=== PATIENT | female | born 1960 | race Asian ===

== ENCOUNTER → 2021-01-21 01:39 | Outpatient (CLI) | payer BC, SELFPAY ==
[2021-01-21 18:53] LABS: SARS-CoV-2 RNA PCR Negative
== END ==
PROVIDERS: PCP Internal Medicine; Visit Provider Internal Medicine Gastroenterology
DX: Z01.812 Encounter for preprocedural laboratory examination (principal); Z20.822 Contact with and (suspected) exposure to COVID-19
CPT/HCPCS: C9803; U0003; U0005

== ENCOUNTER 2021-01-24 01:25 | Day surgery (SDC) | payer BC, SELFPAY ==
[2021-01-09 13:14] VITALS: BMI 25.8
[2021-01-24 06:43] VITALS: BP 126/77; PULSE 64; RESP 17; TEMP 36.7; O2SAT 100; BMI 26.7
[2021-01-24] MEDS: LACTATED RINGERS 1,000 ML 150 ML IV CONT (06:59)
--- NOTE | 2021-01-24 07:25 | PM.HPGS ---
History of Present Illness History of Present Illness Consent: Risks, benefits, and alternatives have been discussed and questions answered. Patient agrees to proceed with procedure. Chief complaint: Neoplasm Screening Narrative: Aleisha Walton is a 60 year old female referred for colon cancer screening Review of Systems Review of Systems: All systems reviewed & are unremarkable except as noted in HPI and below PMFSH Past Medical History Medical History Hyperlipidemia Social History Social History Alcohol intake: current Drinks per week: 1 Substance use: never Substance use type: does not use Living arrangements: with family Meds Home Medications and Allergies Home Medications Medication Instructions Recorded Confirmed Type ergocalciferol (vitamin D2) 1,250 mcg PO WEEKLY 01/09/21 01/24/21 History Allergies Allergy/AdvReac Type Severity Reaction Status Date / Time No Known Allergies Allergy Verified 01/24/21 06:42 Vital Signs Vital Signs - 24 hr 01/24/21 06:43 Temperature 36.7 C Pulse Rate 64 Respiratory Rate 17 Blood Pressure 126/77 Pulse Oximetry 100 Exam Resp: Auscultation: clear to auscultation bilaterally Cardio: Rate: regular rate Rhythm: regular rhythm GI: GI Palp: Yes Soft to palpation and No Tenderness to palpation present (GI) Assessment and Plan Assessment and plan (1) Colon cancer screening: Code(s): Z12.11 - Encounter for screening for malignant neoplasm of colon Status: Acute Assessment and Plan: Colonoscopy with possible biopsy or polypectomy or cautery or injection of substances.
--- NOTE | 2021-01-24 07:32 | WPDANESEPPF ---
Anes - Initial Pre Proc Eval Procedure: Operation Date: 01/24/21 08:00 Proposed Procedures p Screening Colonoscopy - Kyle Garcia MD Date/Time: 01/24/21 07:32 Surgeon: Kyle Garcia MD Pre Op Diagnosis: Neoplasm Screening Patient Data Age: 60 Gender: F Height: 5 ft Weight: 62.1 kg Last Vital Signs Temp 98.1 F 01/24/21 06:43 Pulse 64 01/24/21 06:43 Resp 17 01/24/21 06:43 BP 126/77 01/24/21 06:43 Pulse Ox 100 01/24/21 06:43 Allergies Allergy/AdvReac Type Severity Reaction Status Date / Time No Known Allergies Allergy Verified 01/24/21 06:42 Home Medications Medication Instructions Recorded Confirmed Type ergocalciferol (vitamin D2) 1,250 mcg PO WEEKLY 01/09/21 01/24/21 History Patient hx anesthesia problems: none Family hx anesthesia problems: none [facility] Past Medical History Medical History Hyperlipidemia Social History Social History Alcohol intake: current Drinks per week: 1 Substance use: never Substance use type: does not use Living arrangements: with family Anes - Eval Final PreProcedure Day of Procedure 01/24/21 07:32 Patient weight: overweight Heart: regular rate and rhythm Lungs: clear to auscultation Airway: Mallampati scale class II Neurological: alert and oriented Last oral intake: >/= 8 hours ASA classification: II Emergent: no Anesthetic plan: proceed Anesthesia type and monitoring: general GIVS and standard monitoring Informed Consent: The patient's anesthetic plan and its attendant risks and benefits were discussed with the patient/family/POA. Questions were solicited and answers provided to the satisfaction of the patient/family/POA.
[2021-01-24 08:11] VITALS: BP 91/59; PULSE 76; RESP 16; O2SAT 99
[2021-01-24 08:21] VITALS: BP 100/66; PULSE 66; RESP 11; O2SAT 100
[2021-01-24 08:31] VITALS: BP 127/72; PULSE 63; RESP 13; O2SAT 100
== END 2021-01-24 08:50 | disposition home or self-care (01) ==
PROVIDERS: PCP Internal Medicine; Visit Provider Internal Medicine Gastroenterology
PROC: 0DJD8ZZ Inspection of Lower Intestinal Tract, Via Natural or Artificial Opening Endoscopic (ICD-10-PCS; CPT 45378; principal; 2021-01-24 08:00)
DX: Z12.11 Encounter for screening for malignant neoplasm of colon (principal); K57.30 Diverticulosis of large intestine without perforation or abscess without bleeding; K63.5 Polyp of colon; K62.1 Rectal polyp; K64.8 Other hemorrhoids
CPT/HCPCS: 45380; 45385; 88305; C9803; J2704; J7120; U0003; U0005

== ENCOUNTER 2024-03-10 13:45 | Outpatient (CLI) | payer BC, SELFPAY ==
--- NOTE | ~2024-03-10 | MM_ITS ---
EXAMINATION: MM screening jessica BI w [facility] HISTORY: Screening mammogram TECHNIQUE: Craniocaudal and mediolateral oblique 3-D tomosynthesis images were obtained and synthetic 2-D images were generated. CAD analysis was submitted and interpreted. COMPARISON: No prior mammogram is available for comparison at this institution. BREAST PARENCHYMAL COMPOSITION: There are scattered areas of fibroglandular density. FINDINGS: There is no evidence of suspicious mass, calcification, or architectural distortion to sugg est malignancy in either breast. IMPRESSION: 1. No mammographic evidence of malignancy. 2. Recommend routine screening mammography in one year. BI-RADS Category 1: Negative Reviewed, dictated and finalized at location A.
== END 2024-03-10 13:46 | disposition home or self-care (01) ==
PROVIDERS: PCP Internal Medicine; Visit Provider Obstetrics & Gynecology
DX: Z12.31 Encounter for screening mammogram for malignant neoplasm of breast (principal)
CPT/HCPCS: 77063; 77067

== ENCOUNTER 2024-10-20 08:47 | Emergency (ER) | payer BC, SELFPAY ==
[2024-10-20 09:00] VITALS: BP 139/86; PULSE 79; RESP 16; TEMP 36.6; O2SAT 100
--- NOTE | 2024-10-20 09:22 | ED_ITS ---
HPI - Allergic Reaction General Chief complaint: Allergic Reaction Stated complaint: FACIAL SWELLING Time Seen by Provider: 10/20/24 09:14 Source: patient, RN notes reviewed and old records reviewed Mode of arrival: ambulatory Limitations: no limitations History of Present Illness HPI narrative: 64-year-old female presents to [facility] with complaints facial swelling with small raised rash under bilateral eyes with itching. Patient reports she had a facial on Saturday and on Saturday noted the swelling to her face and rash. Patient denies any shortness of breath or any trouble swallowing. Patient reports she is taking oral Benadryl and also has used Benadryl ointment to the rash under her eyes complaint: allergic reaction and facial swelling Onset (ago): day(s) (4) Exposure: other (had recent facial) Known history of allergy to: none Symptoms: rash, itching and facial swelling Severity: moderate Treatment prior to arrival: benadryl Related Data Allergies Allergy/AdvReac Type Severity Reaction Status Date / Time No Known Allergies Allergy Verified 03/03/24 10:31 Review of Systems Review of Systems: CONSTITUTIONAL: Denies fever, chills, or sweats. CARDIOVASCULAR: Denies chest pain, palpitations, or edema. RESPIRATORY: Denies cough or dyspnea. SKIN: Reports red small raised rash on her cheeks and under her eyes bilaterally with itching and facial swelling MUSCULOSKELETAL: Denies joint pain or myalgia. NEUROLOGIC: Denies headache, numbness, or weakness. All systems reviewed & are unremarkable except as noted in HPI and below PMFSH Past Medical History Medical History Screening mammogram, encounter for Hyperlipidemia Surgical History Surgical History History of cataract surgery 12/2020 (L) eye 09/2021 (R) eye Family History Family History Mother Acute myocardial infarction Breast cancer Heart disease Social History Social History Smoking status: Never smoker Second hand tobacco smoke exposure: No Alcohol intake: current Drinks per week: 1 Alcohol use details: social Substance use: never Substance use type: does not use Do You Feel Safe in your Home?: Yes Lack of Transportation: No Lack of Food: Never True Current Housing: I Have Housing Concerned About Future Housing: No Difficulty Paying Gas/Electric Bills: No Difficulty Paying for Meds: No Currently Unemployed: No Education: Bachelor's Degree Difficulty w/ Childcare or Family Care: No Living arrangements: other Additional living arrangements comments: Occupation/Education: retired 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 There is no relevant family history pertinent to the presenting complaint Exam Narrative: GENERAL: Well-appearing, well-nourished, and in no acute distress. HEAD: Normocephalic, atraumatic. EYES: PERRLA, conjunctivae clear, and EOMI. ENT: Mucous membranes moist. Oropharynx without edema, erythema or lesions. NECK: Supple. No lymphadenopathy CHEST: Clear to auscultation. No respiratory distress. SaO2 100% on room air HEART: Regular rate and rhythm. SKIN: Warm, dry.? red raised rash under bilateral eyes some redness to her cheeks and swelling noted to face is puritic. NEURO:? Alert and oriented x3. PSYCH: Normal mood and affect Course Course Emergency Course: Patient is aware of diagnosis, understands and agrees to treatment plan.? Anticipatory guidance given.? Patient agrees to follow-up as directed and is aware of reasons to seek care at the emergency department. Portions of this record may have been created with voice recognition software Level of Care: Express Care Visit Vital Signs Vital signs: Vital Signs Temperature 36.6 C 10/20/24 09:00 Pulse Rate 79 10/20/24 09:00 Respiratory Rate 16 10/20/24 09:00 Blood Pressure 139/86 10/20/24 09:00 Pulse Oximetry 100 10/20/24 09:00 Temperature 36.6 C 10/20/24 09:00 Pulse Rate 79 10/20/24 09:00 Respiratory Rate 16 10/20/24 09:00 Blood Pressure 139/86 10/20/24 09:00 Pulse Oximetry 100 10/20/24 09:00 Reviewed MDM - Allergic Reaction Differential Diagnosis Differential diagnosis: Likely allergic reaction, contact dermatitis and other (adverse reaction to skin care products) Medical Records Attestation: I reviewed the patient's medical records. Critical Care Time Critical Care Time Critical Care Time: No Discharge Plan Discharge Clinical Impression: Allergic reaction to chemical substance Qualifiers: Encounter type: initial encounter Injury intent: accidental or unintentional Qualified Code(s): T65.91XA - Toxic effect of unspecified substance, accidental (unintentional), initial encounter Patient Disposition: Home, Self-Care Condition: Stable Instructions: Antibiotic Form, General Allergic Reaction (ED) Additional Instructions: apply Benadryl ointment or hydrocortisone to rash on face watch for any increasing symptom--redness, swelling, drainage Zyrtec daily for 10 days Pepcid 20 mg for 10 days follow up with PCP in 7-10 days for a wound check recheck if develop fever, chills, increasing symptom Go to the ER if your symptoms become worse of if ANY new symptoms develop prednisone taper take as prescribed with food If your symptoms persist, change or worsen significantly before you can contact your personal physician then please, without delay, go to the emergency depar tment for further evaluation. Follow-up with PCP in 7-10 days or sooner if needed Follow up with PCP soon in regards to your blood pressure which is elevated above threshold for referral. Blood pressure above 120/80 may indicate pre- hypertension. 139/86 Patient Language: Divehi Prescriptions: New famotidine [Pepcid] 20 mg tablet 20 mg PO DAILY Qty: 10 0RF prednisone 10 mg tablet 10 mg PO DIRECTED Qty: 42 0RF Rx Instructions: see taper instructions 6 tablets for 2 days, 5 tabs for 2 day, 4 tabs for 2 days,3 tabs for 2 days, 2 tabs for 2 days 1 tab for 2 days famotidine [Pepcid] 20 mg tablet 20 mg PO DAILY Qty: 10 0RF prednisone 10 mg tablet 10 mg PO DIRECTED Qty: 42 0RF Rx Instructions: see taper instructions 6 tabs daily x2 days, 5 tabs x2 days, 4 tabs x2 days, 3 tabs x2 days, 2 tabs x2 days, 1 tab x2 days Follow-up/Referrals: PHYSICIAN,NEUROPHYSIOLOGICAL TECHNICIAN [Primary Care Provider] - Time of Disposition: 09:38 Quality [place] Coma Scale Eyes: Open Verbal: Oriented and Alert Motor: Follows Commands Jessica Coma Total Score: 15
== END 2024-10-20 10:00 | disposition home or self-care (01) ==
PROVIDERS: Emergency Provider Registered Nurse
DX: T65.91XA Toxic effect of unspecified substance, accidental (unintentional), initial encounter (principal); E78.5 Hyperlipidemia, unspecified
CPT/HCPCS: 99213; G0463

== ENCOUNTER 2025-05-26 14:44 | Outpatient (CLI) | payer BC, SELFPAY ==
--- NOTE | ~2025-05-26 | MM_ITS ---
EXAMINATION: MM screening jessica BI w lashonda HISTORY: Screening TECHNIQUE: Craniocaudal and mediolateral oblique 3-D tomosynthesis images were obtained and synthetic 2-D images were generated. CAD analysis was submitted and interpreted. COMPARISON: 03/10/2024 BREAST PARENCHYMAL COMPOSITION: Not dense: There are scattered areas of fibroglandular density. FINDINGS: There is no evidence of suspicious mass, calcification, or architectural distortion to sugg est malignancy in either breast. There has been no suspicious interval change. IMPRESSION: 1. No mammographic evidence of malignancy. 2. Recommend routine screening mammography in one year. BI-RADS Category 1: Negative Reviewed, dictated and finalized at location B.
--- OUTSIDE RECORDS SUMMARY | 2025-05-26 14:47 | XMS_ITS | Data Portability ---
Author Organization [place] [facility], Main Office Address [address] [place] [address] Assessment No assessment recorded. Plan of Treatment Reminders Order Date Submit Date Provider Last Modified By Organization Details Last Modified Time Details Appointments None record ed. Lab None record ed. Referral None record ed. Procedures None record ed. Surgeries None record ed. Imaging None record ed. Medication Orders None record ed. Patient TargetsNo targets recorded. Patient InstructionsNo instructions recorded. Reason for Referral None Reported. Results Created Date Observation Date Name Description Value Unit Range Abnormal Flag Note LastModifiedBy Organization Detail LastModifiedTime 01/03/20 22 01/03/2022 TSH thyroid-stim ulating hormone 3.510 uIU/m L 0.465- 4.680 Not Available [facility] (Lab) [address] [place], [address], 01/03/2022 13:58:27 01/03/20 22 01/03/2022 VITAM IN D 25-HY DROXY [id number] 28.0 NG/mL 30-100 low Vitam in D Statu s: Defic ient: <20 ng/mL Insuf ficie nt: 20-29 ng/mL Suffi cient : 30-10 0 ng/mL Not Available [facility] (Lab) [address] [place], [address], 01/03/2022 13:44:12 01/03/20 22 01/03/2022 T4 FREE free T4 0.99 NG/dL 0.78-2 .19 Not Available [facility] (Lab) [address] [place], [address], 01/03/2022 13:43:30 01/03/20 22 01/03/2022 COMPR EHENS MARYANN METAB OLIC PANEL glucose 90 mg/dL 70-99 Not Available [facility] (Lab) [address] [facility] [place], [address], 01/03/2022 13:28:15 01/03/20 22 01/03/2022 COMPR EHENS MARYANN METAB OLIC PANEL sodium 140 mmol/ L 137-14 5 Not Available [facility] (Lab) [address] [place], [address], 01/03/2022 13:28:15 01/03/20 22 01/03/2022 COMPR EHENS MARYANN METAB OLIC PANEL potassium 4.6 mmol/ L 3.5-5. 1 Not Available [facility] (Lab) [address] [place], [address], 01/03/2022 13:28:15 01/03/20 22 01/03/2022 COMPR EHENS MARYANN METAB OLIC PANEL chloride 108 mmol/ L 98-107 high Not Available [facility] (Lab) [address] [place], [address], 01/03/2022 13:28:15 01/03/20 22 01/03/2022 COMPR EHENS MARYANN METAB OLIC PANEL carbon dioxide 28 mmol/ L 22-30 Not Available [facility] (Lab) [address] [place], [address], 01/03/2022 13:28:15 01/03/20 22 01/03/2022 COMPR EHENS MARYANN METAB OLIC PANEL agap 8.6 mmol/ L 14-22 low Not Available [facility] (Lab) [address] [place], [address], 01/03/2022 13:28:15 01/03/20 22 01/03/2022 COMPR EHENS MARYANN METAB OLIC PANEL BUN 13 mg/dL 8-19 Not Available [facility] (Lab) [address] [place], [address], 01/03/2022 13:28:15 01/03/20 22 01/03/2022 COMPR EHENS MARYANN METAB OLIC PANEL creatinine 0.69 mg/dL 0.66-1 .25 Not Available [facility] (Lab) [address] [place], [address], 01/03/2022 13:28:15 01/03/20 22 01/03/2022 COMPR EHENS MARYANN METAB OLIC PANEL GFR >60 Refer ence Range : [place] GFR Healt hy Adult : >60 mL/mi n/1.7 3 m2 Chron ic Kidne y Disea se: 15-60 mL/mi n/1.7 3 m2 Kidne y Failu re: <15/m L/min /1.73 m2 www.n iddk. nih.g ov The MDRD study equat ion has not been valid ated in child jaylen <18 years of age; pregn ant women ; the elder ly >85 years of age; or in some racia l or ethni c subgr oups, such as Hispa nics. Outsi de the valid ated damien eters , estim ated GFR is less accur ate, requi ring clini michelle judgm ent on a case- by-ca se basis . Clini michelle inter preta tion for other races and ages must be made by the clini sera. The MDRD study equat ion has not been valid ated for the evalu ation of serum creat inine relat ed to nutri elizabeth l statu s or medic ation usage . For perso ns <18 years of age, a pedia tric GFR calcu lator is avail able on the F websi te: https ://yris correa.o rg/pr ofess ional s/kdo qi/gf r_cal culat or Not Available [facility] (Lab) [address] [place], [address], 01/03/2022 13:28:15 01/03/20 22 01/03/2022 COMPR EHENS MARYANN METAB OLIC PANEL alkaline phosphatase 61 U/L 38-126 Not Available [facility] (Lab) [address] [place], [address], 01/03/2022 13:28:15 01/03/20 22 01/03/2022 COMPR EHENS MARYANN METAB OLIC PANEL alanine aminotransfe rase 31 U/L 0-35 Not Available [facility] (Lab) [address] [place], [address], 01/03/2022 13:28:15 01/03/20 22 01/03/2022 COMPR EHENS MARYANN METAB OLIC PANEL aspartate aminotransfe rase 40 U/L 15-37 high Not Available [facility] (Lab) [address] [place], [address], 01/03/2022 13:28:15 01/03/20 22 01/03/2022 COMPR EHENS MARYANN METAB OLIC PANEL bilirubin, total 0.60 mg/dL 0.20-1 .30 Not Available [facility] (Lab) [address] [place], [address], 01/03/2022 13:28:15 01/03/20 22 01/03/2022 COMPR EHENS MARYANN METAB OLIC PANEL calcium 8.8 mg/dL 8.4-10 .2 Not Available [facility] (Lab) [address] [place], [address], 01/03/2022 13:28:15 01/03/20 22 01/03/2022 COMPR EHENS MARYANN METAB OLIC PANEL total protein 7.2 g/dL 6.3-8. 2 Not Available [facility] (Lab) [address] [place], [address], 01/03/2022 13:28:15 01/03/20 22 01/03/2022 COMPR EHENS MARYANN METAB OLIC PANEL albumin 4.4 g/dL 3.4-5. 0 Not Available [facility] (Lab) [address] [place], [address], 01/03/2022 13:28:15 01/03/2001/03/2022 COMPR EHENS MARYANN METAB OLIC PANEL globulin 2.8 g/dL 2.6-4. 2 Not Available [facility] (Lab) [address] [place], [address], 01/03/2022 13:28:15 01/03/20 22 01/03/2022 COMPR EHENS MARYANN METAB OLIC PANEL A/G ratio 1.6 ratio 1.0-2. 0 Not Available [facility] (Lab) [address] [place], [address], 01/03/2022 13:28:15 01/03/2001/03/2022 LIPID PANEL LDL cholesterol, calculated 44 mg/dL 0-130 NIH SUNDAR NSUS REPOR T RECOM MENDA TIONS FOR LDL: ADULT CHILD LOW RISK <130 <110 (OPTI MAL LDL) <100 ----- BORDE RLINE : 130-1 59 ----- HIGH RISK: >160 >130 A TRIGL YCERI DE RESUL T >400 INVAL IDATE S THE CALCU LATIO N FOR LDL FRACT IONAT ION - THE LDL RESUL T WILL NOT BE REPOR KIMBERLY. Not Available [facility] (Lab) [address] [place], [address], 01/03/2022 13:28:08 01/03/20 22 01/03/2022 LIPID PANEL cholesterol 144 mg/dL 140-19 9 NIH SUNDAR NSUS RECOM MENDA TION FOR SAUNDRA STERO L: ADULT CHILD LOW RISK: <200 <170 BORDE RLINE : <200- 239 ----- HIGH RISK: >240 >200 Not Available [facility] (Lab) [address] [place], [address], 01/03/2022 13:28:08 01/03/20 22 01/03/2022 LIPID PANEL triglyceride s 82 mg/dL 0-150 NIH SUNDAR NSUS REPOR T RECOM MENDA TION FOR TRIGL YCERI KALEN: ADULT CHILD LOW RISK: <150 ----- BODER LINE: 150-1 99 ----- HIGH RISK: >200 ----- Not Available [facility] (Lab) [address] [place], [address], 01/03/2022 13:28:08 01/03/20 22 01/03/2022 LIPID PANEL HDL cholesterol 84 mg/dL 40- Not Available [facility] (Lab) [address] [place], [address], 01/03/2022 13:28:08 01/03/2001/03/2022 CBC/C OMPLE TE BLD COUNT W/DIF F mean red cell hemoglobin 28.4 pg 27.0-3 3.0 Not Available [facility] (Lab) [address] [place], [address], 01/03/2022 13:07:19 01/03/20 22 01/03/2022 CBC/C OMPLE TE BLD COUNT W/DIF F white blood cells 5.7 x10'3 /uL 4.2-10 .8 Not Available [facility] (Lab) [address] [place], [address], 01/03/2022 13:07:19 01/03/20 22 01/03/2022 CBC/C OMPLE TE BLD COUNT W/DIF F red blood cells 4.62 x10'6 /uL 3.80-5 .20 Not Available [facility] (Lab) [address] [place], [address], 01/03/2022 13:07:19 01/03/20 22 01/03/2022 CBC/C OMPLE TE BLD COUNT W/DIF F hemoglobin 13.1 g/dL 12.0-1 5.6 Not Available [facility] (Lab) [address] [place], [address], 01/03/2022 13:07:19 01/03/20 22 01/03/2022 CBC/C OMPLE TE BLD COUNT W/DIF F hematocrit 41.5 % 35.7-4 5.7 Not Available [facility] (Lab) [address] [place], [address], 01/03/2022 13:07:19 01/03/20 22 01/03/2022 CBC/C OMPLE TE BLD COUNT W/DIF F mean red cell volume 89.8 fL 82.0-9 9.0 Not Available [facility] (Lab) [address] [place], [address], 01/03/2022 13:07:19 01/03/20 22 01/03/2022 CBC/C OMPLE TE BLD COUNT W/DIF F mean RBC HGB concentratio n 31.6 g/dL 31.0-3 6.0 Not Available [facility] (Lab) [address] [place], [address], 01/03/2022 13:07:19 01/03/20 22 01/03/2022 CBC/C OMPLE TE BLD COUNT W/DIF F red cell distribution width 12.8 % 11.8-1 5.5 Not Available [facility] (Lab) [address] [place], [address], 01/03/2022 13:07:19 01/03/20 22 01/03/2022 CBC/C OMPLE TE BLD COUNT W/DIF F platelets 252 x10'3 /uL 150-40 0 Not Available [facility] (Lab) [address] [place], [address], 01/03/2022 13:07:19 01/03/20 22 01/03/2022 CBC/C OMPLE TE BLD COUNT W/DIF F mean platelet volume 10.1 fL 9.0-12 .4 Not Available [facility] (Lab) [address] [place], [address], 01/03/2022 13:07:19 01/03/20 22 01/03/2022 CBC/C OMPLE TE BLD COUNT W/DIF F neutrophils 47.8 % 39.0-7 2.0 Not Available [facility] (Lab) [address] [place], [address], 01/03/2022 13:07:19 01/03/20 22 01/03/2022 CBC/C OMPLE TE BLD COUNT W/DIF F lymphocytes 36.0 % 16.0-4 7.0 Not Available [facility] (Lab) [address] [place], [address], 01/03/2022 13:07:19 01/03/20 22 01/03/2022 CBC/C OMPLE TE BLD COUNT W/DIF F monocytes 7.2 % 5.0-12 .0 Not Available [facility] (Lab) [address] [place], [address], 01/03/2022 13:07:19 01/03/20 22 01/03/2022 CBC/C OMPLE TE BLD COUNT W/DIF F eosinophils 7.2 % 1.0-7. 0 high Not Available [facility] (Lab) [address] [place], [address], 01/03/2022 13:07:19 01/03/20 22 01/03/2022 CBC/C OMPLE TE BLD COUNT W/DIF F basophils 1.6 % 0.0-2. 0 Not Available [facility] (Lab) [address] [place], [address], 01/03/2022 13:07:19 01/03/2001/03/2022 CBC/C OMPLE TE BLD COUNT W/DIF F immature granulocytes 0.2 % 0.00-0 .50 Not Available [facility] (Lab) [address] [place], [address], 01/03/2022 13:07:19 01/03/20 22 01/03/2022 CBC/C OMPLE TE BLD COUNT W/DIF F neutrophils, absolute count 2.73 x10'3 /uL 1.5-8. 0 Not Available [facility] (Lab) [address] [place], [address], 01/03/2022 13:07:19 01/03/20 22 01/03/2022 CBC/C OMPLE TE BLD COUNT W/DIF F lymphocytes, absolute count 2.05 x10'3 /uL 1.07-3 .43 Not Available [facility] (Lab) [address] [place], [address], 01/03/2022 13:07:19 01/03/20 22 01/03/2022 CBC/C OMPLE TE BLD COUNT W/DIF F monocytes, absolute count 0.41 x10'3 /uL 0.29-0 .99 Not Available [facility] (Lab) [address] [place], [address], 01/03/2022 13:07:19 01/03/20 22 01/03/2022 CBC/C OMPLE TE BLD COUNT W/DIF F eosinophils, absolute count 0.41 x10'3 /uL 0.02-0 .53 Not Available [facility] (Lab) [address] [place], [address], 01/03/2022 13:07:19 01/03/20 22 01/03/2022 CBC/C OMPLE TE BLD COUNT W/DIF F basophils, absolute count 0.09 x10'3 /uL 0.01-0 .08 high Not Available [facility] (Lab) [address] [place], [address], 01/03/2022 13:07:19 01/03/20 22 01/03/2022 CBC/C OMPLE TE BLD COUNT W/DIF F immature granulocytes ,absolute 0.01 x10'3 /uL 0.00-0 .05 Not Available [facility] (Lab) [address] [place], [address], 01/03/2022 13:07:19 01/03/20 22 01/03/2022 CBC/C OMPLE TE BLD COUNT W/DIF F nucleated red blood cells 0.0 % -0 Not Available [facility] (Lab) [address] [place], [address], 01/03/2022 13:07:19 01/03/20 22 01/03/2022 CBC/C OMPLE TE BLD COUNT W/DIF F NRBC# 0.00 x10'3 /uL Not Available [facility] (Lab) [address] [place], [address], 01/03/2022 13:07:19 05/09/20 22 05/09/2022 HEPAT ITIS ACUTE PANEL S/C 0.05 0.00-0 .99 Not Available [facility] (Lab) [address] [place], [address], 05/09/2022 14:12:12 05/09/20 22 05/09/2022 HEPAT ITIS ACUTE PANEL hepatitis A IgM antibody non-re active non-re active For sampl es repor kimberly as Mark lazoine React maryann for HAV IgM, it is recom russell d a new speci men be obtai erica in 2 weeks and retes kimberly. Not Available [facility] (Lab) [address] [place], [address], 05/09/2022 14:12:12 05/09/20 22 05/09/2022 HEPAT ITIS ACUTE PANEL S/C 0.02 0.00-0 .79 Not Available [facility] (Lab) [address] [place], [address], 05/09/2022 14:12:12 05/09/20 22 05/09/2022 HEPAT ITIS ACUTE PANEL hepatitis B core IgM antibody non-re active non-re active Not Available [facility] (Lab) [address] [place], [address], 05/09/2022 14:12:12 05/09/20 22 05/09/2022 HEPAT ITIS ACUTE PANEL S/C 0.02 0.00-1 .10 Not Available [facility] (Lab) [address] [place], [address], 05/09/2022 14:12:12 05/09/20 22 05/09/2022 HEPAT ITIS ACUTE PANEL hepatitis B surface antigen non-re active non-re active Not Available [facility] (Lab) [address] [place], [address], 05/09/2022 14:12:12 05/09/20 22 05/09/2022 HEPAT ITIS ACUTE PANEL hepatitis C antibody non-re active non-re active Not Available [facility] (Lab) [address] [place], [address], 05/09/2022 14:12:12 05/09/20 22 05/09/2022 HEPAT ITIS ACUTE PANEL S/C 0.01 0.00-0 .99 Not Available [facility] (Lab) [address] [place], [address], 05/09/2022 14:12:12 05/09/20 22 05/09/2022 TSH thyroid-stim ulating hormone 4.390 uIU/m L 0.465- 4.680 Not Available [facility] (Lab) [address] [place], [address], 05/09/2022 13:42:17 05/09/20 22 05/09/2022 T4 FREE free T4 1.00 NG/dL 0.78-2 .19 Not Available [facility] (Lab) [address] [place], [address], 05/09/2022 13:21:42 05/09/20 22 05/09/2022 GGT/G -GLUT AMYL TRANS FERAS E gamma-glutam yl transferase 47 U/L 12-43 high Not Available [facility] (Lab) [address] [place], [address], 05/09/2022 13:21:16 05/09/20 22 05/09/2022 COMPR EHENS MARYANN METAB OLIC PANEL anion gap 12.4 mmol/ L 14-22 low Not Available [facility] (Lab) [address] [place], [address], 05/09/2022 13:21:14 05/09/20 22 05/09/2022 COMPR EHENS MARYANN METAB OLIC PANEL sodium 143 mmol/ L 137-14 5 Not Available [facility] (Lab) [address] [place], [address], 05/09/2022 13:21:14 05/09/20 22 05/09/2022 COMPR EHENS MARYANN METAB OLIC PANEL potassium 4.4 mmol/ L 3.5-5. 1 Not Available [facility] (Lab) [address] [place], [address], 05/09/2022 13:21:14 05/09/20 22 05/09/2022 COMPR EHENS MARYANN METAB OLIC PANEL chloride 107 mmol/ L 98-107 Not Available [facility] (Lab) [address] [place], [address], 05/09/2022 13:21:14 05/09/20 22 05/09/2022 COMPR EHENS MARYANN METAB OLIC PANEL carbon dioxide 28 mmol/ L 22-30 Not Available [facility] (Lab) [address] [place], [address], 05/09/2022 13:21:14 05/09/20 22 05/09/2022 COMPR EHENS MARYANN METAB OLIC PANEL glucose 91 mg/dL 70-99 Not Available [facility] (Lab) [address] [place], [address], 05/09/2022 13:21:14 05/09/20 22 05/09/2022 COMPR EHENS MARYANN METAB OLIC PANEL BUN 11 mg/dL 8-19 Not Available [facility] (Lab) [address] [place], [address], 05/09/2022 13:21:14 05/09/20 22 05/09/2022 COMPR EHENS MARYANN METAB OLIC PANEL creatinine 0.81 mg/dL 0.66-1 .25 Not Available [facility] (Lab) [address] [place], [address], 05/09/2022 13:21:14 05/09/20 22 05/09/2022 COMPR EHENS MARYANN METAB OLIC PANEL GFR >60 Refer ence Range : [place] GFR Healt hy Adult : >60 mL/mi n/1.7 3 m2 Chron ic Kidne y Disea se: 15-60 mL/mi n/1.7 3 m2 Kidne y Failu re: <15/m L/min /1.73 m2 www.n iddk. nih.g ov The MDRD study equat ion has not been valid ated in child jaylen <18 years of age; pregn ant women ; the elder ly >85 years of age; or in some racia l or ethni c subgr oups, such as Hispa nics. Outsi de the valid ated dmaien eters , estim ated GFR is less accur ate, requi ring clini michelle judgm ent on a case- by-ca se basis . Clini michelle inter preta tion for other races and ages must be made by the clini sera. The MDRD study equat ion has not been valid ated for the evalu ation of serum creat inine relat ed to nutri elizabeth l statu s or medic ation usage . For perso ns <18 years of age, a pedia tric GFR calcu lator is avail able on the NKF websi te: https ://ww w.kid madeline.pete chow/pr ofess ional s/kdo qi/gf r_cal culat or Not Available [facility] (Lab) [address] [place], [address], 05/09/2022 13:21:14 05/09/20 22 05/09/2022 COMPR EHENS MARYANN METAB OLIC PANEL alkaline phosphatase 64 U/L 38-126 Not Available [facility] (Lab) [address] [place], [address], 05/09/2022 13:21:14 05/09/20 22 05/09/2022 COMPR EHENS MARYANN METAB OLIC PANEL alanine aminotransfe rase 22 U/L 0-35 Not Available [facility] (Lab) [address] [place], [address], 05/09/2022 13:21:14 05/09/20 22 05/09/2022 COMPR EHENS MARYANN METAB OLIC PANEL aspartate aminotransfe rase 33 U/L 15-37 Not Available [facility] (Lab) [address] [place], [address], 05/09/2022 13:21:14 05/09/20 22 05/09/2022 COMPR EHENS MARYANN METAB OLIC PANEL bilirubin, total 0.40 mg/dL 0.20-1 .30 Not Available [facility] (Lab) [address] [place], [address], 05/09/2022 13:21:14 05/09/20 22 05/09/2022 COMPR EHENS MARYANN METAB OLIC PANEL calcium 9.3 mg/dL 8.4-10 .2 Not Available [facility] (Lab) [address] [place], [address], 05/09/2022 13:21:14 05/09/20 22 05/09/2022 COMPR EHENS MARYANN METAB OLIC PANEL total protein 7.1 g/dL 6.3-8. 2 Not Available [facility] (Lab) [address] [place], [address], 05/09/2022 13:21:14 05/09/20 22 05/09/2022 COMPR EHENS MARYANN METAB OLIC PANEL albumin 4.4 g/dL 3.4-5. 0 Not Available [facility] (Lab) [address] [place], [address], 05/09/2022 13:21:14 05/09/20 22 05/09/2022 COMPR EHENS MARYANN METAB OLIC PANEL globulin 2.7 g/dL 2.6-4. 2 Not Available [facility] (Lab) [address] [place], [address], 05/09/2022 13:21:14 05/09/20 22 05/09/2022 COMPR EHENS MARYANN METAB OLIC PANEL A/G ratio 1.6 ratio 1.0-2. 0 Not Available [facility] (Lab) [address] [place], [address], 05/09/2022 13:21:14 05/09/20 22 05/09/2022 LIPID PANEL HDL cholesterol 93 mg/dL 40- Not Available [facility] (Lab) [address] [place], [address], 05/09/2022 13:21:07 05/09/20 22 05/09/2022 LIPID PANEL cholesterol 142 mg/dL 140-19 9 NIH SUNDAR NSUS RECOM MENDA TION FOR SAUNDRA STERO L: ADULT CHILD LOW RISK: <200 <170 BORDE RLINE : <200- 239 ----- HIGH RISK: >240 >200 Not Available [facility] (Lab) [address] [place], [address], 05/09/2022 13:21:07 05/09/20 22 05/09/2022 LIPID PANEL triglyceride s 68 mg/dL 0-150 NIH SUNDAR NSUS REPOR T RECOM MENDA TION FOR TRIGL YCERI KALEN: ADULT CHILD LOW RISK: <150 ----- BODER LINE: 150-1 99 ----- HIGH RISK: >200 ----- Not Available [facility] (Lab) [address] [place], [address], 05/09/2022 13:21:07 05/09/20 22 05/09/2022 LIPID PANEL LDL cholesterol, calculated 35 mg/dL 0-130 NIH SUNDAR NSUS REPOR T RECOM MENDA TIONS FOR LDL: ADULT CHILD LOW RISK <130 <110 (OPTI MAL LDL) <100 ----- FREEDOMDE RLINE : 130-1 59 ----- HIGH RISK: >160 >130 A TRIGL YCERI DE RESUL T >400 INVAL IDATE S THE CALCU LATIO N FOR LDL FRACT IONAT ION - THE LDL RESUL T WILL NOT BE REPOR KIMBERLY. Not Available [facility] (Lab) [address] [place], [address], 05/09/2022 13:21:07 05/09/20 22 05/09/2022 VITAM IN D 25-HY DROXY [id number] 44.5 NG/mL 30-100 Vitam in D Statu s: Defic ient: <20 ng/mL Insuf ficie nt: 20-29 ng/mL Suffi cient : 30-10 0 ng/mL Not Available [facility] (Lab) [address] [place], [address], 05/09/2022 13:20:41 05/09/20 22 05/09/2022 CBC/C OMPLE TE BLD COUNT W/DIF F hematocrit 41.5 % 35.7-4 5.7 Not Available [facility] (Lab) [address] [place], [address], 05/09/2022 13:05:44 05/09/20 22 05/09/2022 CBC/C OMPLE TE BLD COUNT W/DIF F white blood cells 5.8 x10'3 /uL 4.2-10 .8 Not Available [facility] (Lab) [address] [place], [address], 05/09/2022 13:05:44 05/09/20 22 05/09/2022 CBC/C OMPLE TE BLD COUNT W/DIF F red blood cells 4.65 x10'6 /uL 3.80-5 .20 Not Available [facility] (Lab) [address] [place], [address], 05/09/2022 13:05:44 05/09/20 22 05/09/2022 CBC/C OMPLE TE BLD COUNT W/DIF F hemoglobin 13.1 g/dL 12.0-1 5.6 Not Available [facility] (Lab) [address] [place], [address], 05/09/2022 13:05:44 05/09/20 22 05/09/2022 CBC/C OMPLE TE BLD COUNT W/DIF F mean red cell volume 89.2 fL 82.0-9 9.0 Not Available [facility] (Lab) [address] [place], [address], 05/09/2022 13:05:44 05/09/20 22 05/09/2022 CBC/C OMPLE TE BLD COUNT W/DIF F mean red cell hemoglobin 28.2 pg 27.0-3 3.0 Not Available [facility] (Lab) [address] [place], [address], 05/09/2022 13:05:44 05/09/20 22 05/09/2022 CBC/C OMPLE TE BLD COUNT W/DIF F mean RBC HGB concentratio n 31.6 g/dL 31.0-3 6.0 Not Available [facility] (Lab) [address] [place], [address], 05/09/2022 13:05:44 05/09/20 22 05/09/2022 CBC/C OMPLE TE BLD COUNT W/DIF F red cell distribution width 12.6 % 11.8-1 5.5 Not Available [facility] (Lab) [address] [place], [address], 05/09/2022 13:05:44 05/09/20 22 05/09/2022 CBC/C OMPLE TE BLD COUNT W/DIF F platelets 261 x10'3 /uL 150-40 0 Not Available [facility] (Lab) [address] [place], [address], 05/09/2022 13:05:44 05/09/20 22 05/09/2022 CBC/C OMPLE TE BLD COUNT W/DIF F mean platelet volume 9.9 fL 9.0-12 .4 Not Available [facility] (Lab) [address] [place], [address], 05/09/2022 13:05:44 05/09/20 22 05/09/2022 CBC/C OMPLE TE BLD COUNT W/DIF F neutrophils 48.5 % 39.0-7 2.0 Not Available [facility] (Lab) [address] [place], [address], 05/09/2022 13:05:44 05/09/20 22 05/09/2022 CBC/C OMPLE TE BLD COUNT W/DIF F lymphocytes 35.2 % 16.0-4 7.0 Not Available [facility] (Lab) [address] [place], [address], 05/09/2022 13:05:44 05/09/20 22 05/09/2022 CBC/C OMPLE TE BLD COUNT W/DIF F monocytes 7.0 % 5.0-12 .0 Not Available [facility] (Lab) [address] [place], [address], 05/09/2022 13:05:44 05/09/20 22 05/09/2022 CBC/C OMPLE TE BLD COUNT W/DIF F eosinophils 7.9 % 1.0-7. 0 high Not Available [facility] (Lab) [address] [place], [address], 05/09/2022 13:05:44 05/09/20 22 05/09/2022 CBC/C OMPLE TE BLD COUNT W/DIF F basophils 1.2 % 0.0-2. 0 Not Available [facility] (Lab) [address] [place], [address], 05/09/2022 13:05:44 05/09/20 22 05/09/2022 CBC/C OMPLE TE BLD COUNT W/DIF F immature granulocytes 0.2 % 0.00-0 .50 Not Available [facility] (Lab) [address] [place], [address], 05/09/2022 13:05:44 05/09/20 22 05/09/2022 CBC/C OMPLE TE BLD COUNT W/DIF F eosinophils, absolute count 0.46 x10'3 /uL 0.02-0 .53 Not Available [facility] (Lab) [address] [place], [address], 05/09/2022 13:05:44 05/09/20 22 05/09/2022 CBC/C OMPLE TE BLD COUNT W/DIF F neutrophils, absolute count 2.83 x10'3 /uL 1.5-8. 0 Not Available [facility] (Lab) [address] [place], [address], 05/09/2022 13:05:44 05/09/20 22 05/09/2022 CBC/C OMPLE TE BLD COUNT W/DIF F lymphocytes, absolute count 2.05 x10'3 /uL 1.07-3 .43 Not Available [facility] (Lab) [address] [place], [address], 05/09/2022 13:05:44 05/09/20 22 05/09/2022 CBC/C OMPLE TE BLD COUNT W/DIF F monocytes, absolute count 0.41 x10'3 /uL 0.29-0 .99 Not Available [facility] (Lab) [address] [place], [address], 05/09/2022 13:05:44 05/09/20 22 05/09/2022 CBC/C OMPLE TE BLD COUNT W/DIF F basophils, absolute count 0.07 x10'3 /uL 0.01-0 .08 Not Available [facility] (Lab) [address] [place], [address], 05/09/2022 13:05:44 05/09/20 22 05/09/2022 CBC/C OMPLE TE BLD COUNT W/DIF F immature granulocytes ,absolute 0.01 x10'3 /uL 0.00-0 .05 Not Available [facility] (Lab) [address] [place], [address], 05/09/2022 13:05:44 05/09/20 22 05/09/2022 CBC/C OMPLE TE BLD COUNT W/DIF F nucleated red blood cells 0.0 % -0 Not Available [facility] (Lab) [address] [place], [address], 05/09/2022 13:05:44 05/09/20 22 05/09/2022 CBC/C OMPLE TE BLD COUNT W/DIF F NRBC# 0.00 x10'3 /uL Not Available [facility] (Lab) [address] [place], [address], 05/09/2022 13:05:44 06/14/20 23 06/14/2023 CBC/C OMPLE TE BLD COUNT W/DIF F white blood cells 6.4 x10'3 /uL 4.2-10 .8 Not Available [facility] (Lab) [address] [place], [address], 06/14/2023 12:33:58 06/14/20 23 06/14/2023 CBC/C OMPLE TE BLD COUNT W/DIF F red blood cells 4.92 x10'6 /uL 3.80-5 .20 Not Available [facility] (Lab) [address] [place], [address], 06/14/2023 12:33:58 06/14/20 23 06/14/2023 CBC/C OMPLE TE BLD COUNT W/DIF F hemoglobin 14.0 g/dL 12.0-1 5.6 Not Available [facility] (Lab) [address] [place], [address], 06/14/2023 12:33:58 06/14/20 23 06/14/2023 CBC/C OMPLE TE BLD COUNT W/DIF F hematocrit 43.1 % 35.7-4 5.7 Not Available [facility] (Lab) [address] [place], [address], 06/14/2023 12:33:58 06/14/20 23 06/14/2023 CBC/C OMPLE TE BLD COUNT W/DIF F mean red cell volume 87.6 fL 82.0-9 9.0 Not Available [facility] (Lab) [address] [place], [address], 06/14/2023 12:33:58 06/14/20 23 06/14/2023 CBC/C OMPLE TE BLD COUNT W/DIF F mean red cell hemoglobin 28.5 pg 27.0-3 3.0 Not Available [facility] (Lab) [address] [place], [address], 06/14/2023 12:33:58 06/14/20 23 06/14/2023 CBC/C OMPLE TE BLD COUNT W/DIF F mean RBC HGB concentratio n 32.5 g/dL 31.0-3 6.0 Not Available [facility] (Lab) [address] [place], [address], 06/14/2023 12:33:58 06/14/20 23 06/14/2023 CBC/C OMPLE TE BLD COUNT W/DIF F red cell distribution width 12.1 % 11.8-1 5.5 Not Available [facility] (Lab) [address] [place], [address], 06/14/2023 12:33:58 06/14/20 23 06/14/2023 CBC/C OMPLE TE BLD COUNT W/DIF F platelets 233 x10'3 /uL 150-40 0 Not Available [facility] (Lab) [address] [place], [address], 06/14/2023 12:33:58 06/14/20 23 06/14/2023 CBC/C OMPLE TE BLD COUNT W/DIF F mean platelet volume 10.3 fL 9.0-12 .4 Not Available [facility] (Lab) [address] [place], [address], 06/14/2023 12:33:58 06/14/20 23 06/14/2023 CBC/C OMPLE TE BLD COUNT W/DIF F neutrophils 52.3 % 39.0-7 2.0 Not Available [facility] (Lab) [address] [place], [address], 06/14/2023 12:33:58 06/14/20 23 06/14/2023 CBC/C OMPLE TE BLD COUNT W/DIF F lymphocytes 32.4 % 16.0-4 7.0 Not Available [facility] (Lab) [address] [place], [address], 06/14/2023 12:33:58 06/14/20 23 06/14/2023 CBC/C OMPLE TE BLD COUNT W/DIF F monocytes 7.1 % 5.0-12 .0 Not Available [facility] (Lab) [address] [place], [address], 06/14/2023 12:33:58 06/14/20 23 06/14/2023 CBC/C OMPLE TE BLD COUNT W/DIF F eosinophils 6.6 % 1.0-7. 0 Not Available [facility] (Lab) [address] [place], [address], 06/14/2023 12:33:58 06/14/20 23 06/14/2023 CBC/C OMPLE TE BLD COUNT W/DIF F basophils 1.4 % 0.0-2. 0 Not Available [facility] (Lab) [address] [place], [address], 06/14/2023 12:33:58 06/14/20 23 06/14/2023 CBC/C OMPLE TE BLD COUNT W/DIF F immature granulocytes 0.2 % 0.00-0 .50 Not Available [facility] (Lab) [address] [place], [address], 06/14/2023 12:33:58 06/14/20 23 06/14/2023 CBC/C OMPLE TE BLD COUNT W/DIF F neutrophils, absolute count 3.33 x10'3 /uL 1.5-8. 0 Not Available [facility] (Lab) [address] [place], [address], 06/14/2023 12:33:58 06/14/20 23 06/14/2023 CBC/C OMPLE TE BLD COUNT W/DIF F lymphocytes, absolute count 2.06 x10'3 /uL 1.07-3 .43 Not Available [facility] (Lab) [address] [place], [address], 06/14/2023 12:33:58 06/14/20 23 06/14/2023 CBC/C OMPLE TE BLD COUNT W/DIF F monocytes, absolute count 0.45 x10'3 /uL 0.29-0 .99 Not Available [facility] (Lab) [address] [place], [address], 06/14/2023 12:33:58 06/14/20 23 06/14/2023 CBC/C OMPLE TE BLD COUNT W/DIF F eosinophils, absolute count 0.42 x10'3 /uL 0.02-0 .53 Not Available [facility] (Lab) [address] [place], [address], 06/14/2023 12:33:58 06/14/20 23 06/14/2023 CBC/C OMPLE TE BLD COUNT W/DIF F basophils, absolute count 0.09 x10'3 /uL 0.01-0 .08 high Not Available [facility] (Lab) [address] [place], [address], 06/14/2023 12:33:58 06/14/20 23 06/14/2023 CBC/C OMPLE TE BLD COUNT W/DIF F immature granulocytes ,absolute 0.01 x10'3 /uL 0.00-0 .05 Not Available [facility] (Lab) [address] [place], [address], 06/14/2023 12:33:58 06/14/20 23 06/14/2023 CBC/C OMPLE TE BLD COUNT W/DIF F nucleated red blood cells 0.0 % -0 Not Available [facility] (Lab) [address] [place], [address], 06/14/2023 12:33:58 06/14/20 23 06/14/2023 CBC/C OMPLE TE BLD COUNT W/DIF F NRBC# 0.00 x10'3 /uL Not Available [facility] (Lab) [address] [place], [address], 06/14/2023 12:33:58 06/14/20 23 06/14/2023 LIPID PANEL cholesterol 145 mg/dL 140-19 9 NIH SUNDAR NSUS RECOM MENDA TION FOR SAUNDRA STERO L: ADULT CHILD LOW RISK: <200 <170 BORDE RLINE : <200- 239 ----- HIGH RISK: >240 >200 Not Available [facility] (Lab) [address] [place], [address], 06/14/2023 12:54:35 06/14/20 23 06/14/2023 LIPID PANEL triglyceride s 73 mg/dL 0-150 NIH SUNDAR NSUS REPOR T RECOM MENDA TION FOR TRIGL YCERI KALEN: ADULT CHILD LOW RISK: <150 ----- BODER LINE: 150-1 99 ----- HIGH RISK: >200 ----- Not Available [facility] (Lab) [address] [place], [address], 06/14/2023 12:54:35 06/14/20 23 06/14/2023 LIPID PANEL HDL cholesterol 69 mg/dL 40- Not Available [facility] (Lab) [address] [place], [address], 06/14/2023 12:54:35 06/14/20 23 06/14/2023 LIPID PANEL LDL cholesterol, calculated 61 mg/dL 0-130 NIH SUNDAR NSUS REPOR T RECOM MENDA TIONS FOR LDL: ADULT CHILD LOW RISK <130 <110 (OPTI MAL LDL) <100 ----- BORDE RLINE : 130-1 59 ----- HIGH RISK: >160 >130 A TRIGL YCERI DE RESUL T >400 INVAL IDATE S THE CALCU LATIO N FOR LDL FRACT IONAT ION - THE LDL RESUL T WILL NOT BE REPOR KIMBERLY. Not Available [facility] (Lab) [address] [place], [address], 06/14/2023 12:54:35 06/14/20 23 06/14/2023 COMPR EHENS MARYANN METAB OLIC PANEL sodium 140 mmol/ L 137-14 5 Not Available [facility] (Lab) [address] [place], [address], 06/14/2023 12:54:41 06/14/20 23 06/14/2023 COMPR EHENS MARYANN METAB OLIC PANEL potassium 4.2 mmol/ L 3.5-5. 1 Not Available [facility] (Lab) [address] [place], [address], 06/14/2023 12:54:41 06/14/20 23 06/14/2023 COMPR EHENS MARYANN METAB OLIC PANEL chloride 103 mmol/ L 98-107 Not Available [facility] (Lab) [address] [place], [address], 06/14/2023 12:54:41 06/14/20 23 06/14/2023 COMPR EHENS MARYANN METAB OLIC PANEL carbon dioxide 28 mmol/ L 22-30 Not Available [facility] (Lab) [address] [place], [address], 06/14/2023 12:54:41 06/14/20 23 06/14/2023 COMPR EHENS MARYANN METAB OLIC PANEL anion gap 13.2 mmol/ L 14-22 low Not Available [facility] (Lab) [address] [place], [address], 06/14/2023 12:54:41 06/14/20 23 06/14/2023 COMPR EHENS MARYANN METAB OLIC PANEL glucose 95 mg/dL 70-99 Not Available [facility] (Lab) [address] [place], [address], 06/14/2023 12:54:41 06/14/20 23 06/14/2023 COMPR EHENS MARYANN METAB OLIC PANEL BUN 15 mg/dL 8-19 Not Available [facility] (Lab) [address] [place], [address], 06/14/2023 12:54:41 06/14/20 23 06/14/2023 COMPR EHENS MARYANN METAB OLIC PANEL creatinine 0.76 mg/dL 0.66-1 .25 Not Available [facility] (Lab) [address] [place], [address], 06/14/2023 12:54:41 06/14/20 23 06/14/2023 COMPR EHENS MARYANN METAB OLIC PANEL GFR >60 Refer ence Range : [place] ge GFR Healt hy Adult : >60 mL/mi n/1.7 3 m2 Chron ic Kidne y Disea se: 15-60 mL/mi n/1.7 3 m2 Kidne y Failu re: <15/m L/min /1.73 m2 www.n iddk. nih.g ov The MDRD study equat ion has not been valid ated in child jaylen <18 years of age; pregn ant women ; the elder ly >85 years of age; or in some racia l or ethni c subgr oups, such as Hisde nics. Outsi de the valid ated damien eters , estim ated GFR is less accur ate, requi ring clini michelle judgm ent on a case- by-ca se basis . Clini michelle inter preta tion for other races and ages must be made by the clini sera. The MDRD study equat ion has not been valid ated for the evalu ation of serum creat inine relat ed to nutri elizabeth l statu s or medic ation usage . For perso ns <18 years of age, a pedia tric GFR calcu lator is avail able on the F websi te: https ://ww w.kid madeline.o rg/pr ofess ional s/kdo qi/gf r_cal culat or Not Available [facility] (Lab) [address] [place], [address], 06/14/2023 12:54:41 06/14/20 23 06/14/2023 COMPR EHENS MARYANN METAB OLIC PANEL alkaline phosphatase 71 U/L 38-126 Not Available [facility] (Lab) [address] [place], [address], 06/14/2023 12:54:41 06/14/20 23 06/14/2023 COMPR EHENS MARYANN METAB OLIC PANEL alanine aminotransfe rase 22 U/L 0-35 Not Available [facility] (Lab) [address] [place], [address], 06/14/2023 12:54:41 06/14/20 23 06/14/2023 COMPR EHENS MARYANN METAB OLIC PANEL aspartate aminotransfe rase 32 U/L 15-37 Not Available [facility] (Lab) [address] [place], [address], 06/14/2023 12:54:41 06/14/20 23 06/14/2023 COMPR EHENS MARYANN METAB OLIC PANEL bilirubin, total 0.60 mg/dL 0.20-1 .30 Not Available [facility] (Lab) [address] [place], [address], 06/14/2023 12:54:41 06/14/20 23 06/14/2023 COMPR EHENS MARYANN METAB OLIC PANEL calcium 9.2 mg/dL 8.4-10 .2 Not Available [facility] (Lab) [address] [place], [address], 06/14/2023 12:54:41 06/14/20 23 06/14/2023 COMPR EHENS MARYANN METAB OLIC PANEL total protein 7.7 g/dL 6.3-8. 2 Not Available [facility] (Lab) [address] [place], [address], 06/14/2023 12:54:41 06/14/20 23 06/14/2023 COMPR EHENS MARYANN METAB OLIC PANEL albumin 4.6 g/dL 3.4-5. 0 Not Available [facility] (Lab) [address] [place], [address], 06/14/2023 12:54:41 06/14/20 23 06/14/2023 COMPR EHENS MARYANN METAB OLIC PANEL globulin 3.1 g/dL 2.6-4. 2 Not Available [facility] (Lab) [address] [place], [address], 06/14/2023 12:54:41 06/14/20 23 06/14/2023 COMPR EHENS MARYANN METAB OLIC PANEL A/G ratio 1.5 ratio 1.0-2. 0 Not Available [facility] (Lab) [address] [place], [address], 06/14/2023 12:54:41 06/14/20 23 06/14/2023 T4 FREE free T4 1.00 NG/dL 0.78-2 .19 Not Available [facility] (Lab) [address] [place], [address], 06/14/2023 13:12:31 06/14/20 23 06/14/2023 TSH thyroid-stim ulating hormone 3.500 uIU/m L 0.465- 4.680 Not Available [facility] (Lab) [address] [place], [address], 06/14/2023 13:17:54 06/14/20 23 06/14/2023 VITAM IN D 25-HY DROXY [id number] 75.1 NG/mL 30-100 Vitam in D Statu s: Defic ient: <20 ng/mL Insuf ficie nt: 20-29 ng/mL Suffi cient : 30-10 0 ng/mL Not Available [facility] (Lab) [address] [place], [address], 06/15/2023 00:36:24 01/24/20 22 MAMMO , scree edith, digit al, bilat eral [facility] [address] [place] [address] [phone] Patien t Name: JOHAN BYRD Access ion #: [id number] Sex: F : 1959 7 4 Locati on: RA2 Attend ing Physic laurel: LEON HOLLAND GENNYOPAL Elias Orderi ng Physic laurel: LEON LINO GENNYEsmeELISE Elias Exam Date: 8:12 AM Exam Name: DIGITA L TRACEY BILAT SCREEN Admitt ing Diagno sis(es ): RADIOL OGY REPORT - FINAL EXAM: MG DIGITA L TRACEY BILAT SCREEN HISTOR Y: screen ing mammog orlin 61-yea r-old female with no curren t breast compla ints. The mine irby has a family histor y of breast cancer in her mother at age 7676 years old. COMPAR BRIANNA: Mammog val dated 2020. TECHNI QUE: Bilate ral CC and MLO views of the breast s were perfor med. Digita l Mammog val images were obtain ed. CAD (compu ter assist ed detect ion) was utiliz ed. FINDIN GS: The breast s are hetero geneou sly dense, which may obscur e small masses . Page 1 of 2 [facility] Mine irby Name: JOHAN BYRD Access ion #: [id number] Sex: F : 1959 7 4 Exam Date: 8:12 AM Exam Name: DIGITA L TRACEY BILAT SCREEN Admitt ing Diagno sis(es ): No masses , asymme tries, suspic ious calcif icatio ns, or jose luis ectura l distor tion are seen. IMPRES RED: BIRADS 1: Assess ment comple te. Negati ve. Recomm end annual screen ing mammog val. Accord ing to the [employer], yearly mammog alvino are recomm ended starti ng at age 40 and contin uing as long as the woman is in good health . Clinic al Breast Exam should be part of the period ic health exam-a bout every 3 years for women in their 20s and 30s and every year for women 40 and over. Breast self-e xam is an option for women in their 20s. Any breast change noted on the breast self-e xam she would be report ed prompt ly to the mine irby's health care [facility] er. A negati ve mammog val report should not discou rage follow -up or biopsy of a clinic ally signif icant findin g and/or abnorm ality. Dense breast tissue may obscur e small neopla sms. This mine irby has been entere d into a mammog val remind er system with a target date for her next mammog orlin. Create d and electr onical ly signed by: Kash العلي MD Signed Date: 3:18 PM (CT) Dictat ed by: Kash العلي MD DD: 3:18 PM (CT) DT: 3:18 PM (CT) Page 2 of 2 [id number] [facility] (Imaging) [address] [place], [address], 01/09/2023 00:48:43 01/24/20 22 US, abdom en, limit ed [facility] [address] [place] [address] Mine irby Name: JOHAN BYRD Access ion #: [id number] Sex: F : 1959 7 4 Locati on: RA2 Attend ing Physic laurel: JONNY ARMAS Orderi Physic laurel: JONNY ARMAS Exam Date: 8:12 AM Exam Name: US ABD/LT D/ORG/ UQ/GB Admitt ing Diagno sis(es ): RADIOL OGY REPORT - FINAL EXAM: US ABD/LT D/ORG/ UQ/GB HISTOR Y: elevat ed liver enzyme s 61-yea r-old female with elevat ed LFTs. COMPAR BRIANNA: None availa ble. TECHNI QUE: Right upper quadra nt ultras ound was perfor med. FINDIN GS: No gallst ones, gallbl adder wall thicke edith, or perich olecys tic free fluid. The patien t was not tender to transd ucer pressu re over the gallbl adder. No intrah epatic biliar y ductal dilata tion or liver mass. There is hepato petal portal venous color Dopple r flow. The common duct measur es 4.0 mm in diamet er. The partia lly visual ized pancre as is unrema rkable . The intrah epatic portio n of the IVC is patent . No upper abdomi nal aortic Page 1 of 2 [facility] Patien t Name: JOHAN BYRD Access ion #: [id number] Sex: F : 1959 7 4 Exam Date: 8:12 AM Exam Name: US ABD/LT D/ORG/ UQ/GB Admitt ing Diagno sis(es ): ectasi a. The right kidney measur es 9.1 cm in length and is normal in appear ance. IMPRES RED: Unrema rkable right upper quadra nt ultras ound. Create d and electr onical ly signed by: Kash العلي MD Signed Date: 12:48 PM (CT) Dictat ed by: Kash العلي MD DD: 12:48 PM (CT) DT: 12:48 PM (CT) Page 2 of 2 [id number] [facility] (Imaging) [address] [place], [address], 01/09/2023 00:48:43 01/24/20 22 01/23/2022 MAMMO , scree edith, digit al, bilat eral No observ ation record ed. [id number] [facility] [address] [place], [address], 01/09/2023 00:48:43 01/24/20 22 01/23/2022 US, liver No observ ation record ed. [id number] [facility] [address] [place], [address], 01/09/2023 00:48:43 10/16/20 22 10/16/2022 XR, foot, 3 or more view No observ ation record ed. [id number] [facility] [address] [place] [address], [phone], 01/09/2023 00:48:43 10/16/20 22 10/16/2022 XR, foot, 3 or more view No observ ation record ed. [id number] [facility] [address] [place] [address], [phone], 01/09/2023 00:48:43 03/07/20 23 03/07/2023 MAMMO , scree edith, digit al, bilat eral No observ ation record ed. [email or web address] [facility] [address] [place], [address], 03/08/2023 11:27:39 03/10/20 24 03/10/2024 imagi ng/di agnos tic resul t No observ ation record ed. [address], [place], [address], 03/10/2024 15:22:54 Result Notes Documentation Provider Name and Address Organization Details Recorded Time Mammo, Screening, Digital, Bilateral : [facility] [address] [place] [address] Patient Name: ALEISHA THORNE Sex: F : 1960 Location: [facility] Attending Physician: CHET SALAZAR Ordering Physician: CHET SALAZAR Exam Date: 01/23/2022 8:12 AM Exam Name: MG DIGITAL TRACEY BILAT SCREEN Admitting Diagnosis(es): RADIOLOGY REPORT - FINAL EXAM: MG DIGITAL TRACEY BILAT SCREEN HISTORY: screening mammogram 61-year-old female with no current breast complaints. The patient has a family history of breast cancer in her mother at age 7676 years old. COMPARISON: Mammography dated 01/09/2021. TECHNIQUE: Bilateral CC and MLO views of the breasts were performed. Digital Mammography images were obtained. CAD (computer assisted detection) was utilized. FINDINGS: The breasts are heterogeneously dense, which may obscure small masses. Page 1 of 2 [facility] Patient Name: ALEISHA THORNE Sex: F : 1960 Exam Date: 01/23/2022 8:12 AM Exam Name: DIGITAL TRACEY BILAT SCREEN Admitting Diagnosis(es): No masses, asymmetries, suspicious calcifications, or architectural distortion are seen. IMPRESSION: BIRADS 1: Assessment complete. Negative. Recommend annual screening mammography. According to the [employer], yearly mammograms are recommended starting at age 40 and continuing as long as the woman is in good health. Clinical Breast Exam should be part of the periodic health exam-about every 3 years for women in their 20s and 30s and every year for women 40 and over. Breast self-exam is an option for women in their 20s. Any breast change noted on the breast self-exam she would be reported promptly to the patient's health care provider. A negative mammography report should not discourage follow-up or biopsy of a clinically significant finding and/or abnormality. Dense breast tissue may obscure small neoplasms. This patient has been entered into a mammography reminder system with a target date for her next mammogram. Created and electronically signed by: Kash Orellana MD Signed Date: 01/23/2022 3:18 PM (CT) Dictated by: Kash Orellana MD (CT) (CT) Page 2 of 2 Not Available [facility] 01/09/2023 00:48:46 Problems Name Problem SNOMED Code Status Onset Date Resolution Date Notes Provider Name and Address Organization Details Recorded Time Pain in both feet 2529571738688 9102 Active 2021 Not Available [facility] 4 16:12:35 Bunion 231174961 Active 2021 Not Available [facility] 4 16:12:35 Bunion 981069725 Active 2021 Not Available [facility] 4 16:12:35 Hyperlipid emia 23143002 Active 2021 Not Available [facility] 4 16:12:35 Vitamin D deficiency 25801100 Active 2022 Not Available [facility] 4 16:12:35 Increased liver function 60351536 Active 2022 Not Available [facility] 4 16:12:35 Problem Notes None recorded. Procedures Surgical History Date Name Laterality Status Provider Name and Address Organization Details Recorded Time Date of Last Pap Smear completed Not Available [facility] 01/09/2023 00:41:39 1 Most Recent Mammogram completed Not Available [facility] 01/09/2023 00:41:39 1 Cataract Surgery completed Not Available [facility] 01/09/2023 00:41:43 Imaging Results None recorded. Procedure Notes None recorded. Medical Equipment None Reported. Medications Name Sig Start Date Stop Date Status Note LastModified by Organization Details LastModified Time ergocalcife rol (vitamin D2) 1,250 mcg (50,000 unit) capsule TAKE 1 CAPSULE BY MOUTH ONCE WEEKLY active Not Available Not Available No t Available rosuvastati n 20 mg tablet TAKE 1 TABLET BY MOUTH EVERY DAY IN THE EVENING active Not Available Not Available No t Available rosuvastati n 40 mg tablet TAKE 1 TABLET BY MOUTH EVERY DAY active Not Available Not Available No t Available Multivitami n 50 Plus TK 1 GUMMY DAILY 01/09 completed Not Available Not Available Not Available cholecalcif lui (vitamin D3) 1,250 mcg (50,000 unit) capsule TAKE 1 CAPSULE BY MOUTH ONE TIME PER WEEK active Not Available Not Available No t Available Suprep Bowel Prep Kit 17.5 gram-3.13 gram-1.6 gram oral solution USE DIRECTED, SEE INSTRUCTI ONS FROM OFFICE. 01/09 completed Not Available Not Available Not Available Vitals Date Recorded Body mass index (BMI) Body height Heart rate Body temperature Body weight Systolic And Diastolic Provider Name and Address Organization Details Last Updated DateTime 3 27 kg/m2 152.4 cm 60 /min 97.4 [degF] 09254.7 5 g 120/78 mm[Hg] Not Available [facility] 3 00:43:59 Date Recorded Body mass index (BMI) Body height Oxygen saturation Oxygen saturation in Arterial blood by Pulse oximetry Heart rate Body temperature Body weight Systolic And Diastolic Provider Name and Address Organization Details Last Updated DateTime 2 26.6 kg/m2 152.4 cm 98 % 98 % 75 /min 97.3 [degF] 37030.5 6 g 122/72 mm[Hg] Not Available [facility] 3 00:43:59 Date Recorded Body mass index (BMI) Body height Heart rate Body temperature Body weight Systolic And Diastolic Provider Name and Address Organization Details Last Updated DateTime 2 26.6 kg/m2 152.4 cm 72 /min 98 [degF] 03339.5 6 g 100/66 mm[Hg] Not Available [facility] 3 00:43:59 Date Recorded Body mass index (BMI) Body height Oxygen saturation Oxygen saturation in Arterial blood by Pulse oximetry Heart rate Respiratory rate Body weight Systolic And Diastolic Provider Name and Address Organization Details Last Updated DateTime 2 26.6 kg/m2 152.4 cm 98 % 98 % 80 /min 14 /min 54008.5 6 g 118/74 mm[Hg] Not Available [facility] 3 00:43:59 Date Recorded Body mass index (BMI) Body height Heart rate Body temperature Body weight Systolic And Diastolic Provider Name and Address Organization Details Last Updated DateTime 2 26.6 kg/m2 152.4 cm 79 /min 97.6 [degF] 66031.5 6 g 120/80 mm[Hg] Not Available [facility] 3 00:43:59 Social History Question Answer Notes LastModified by Organizat ion Details LastModified Time Tobacco Smoking Status Never Smoker Not Available [facility] 01/09/2023 00:41:15 Do You Have An Advance Directive? No MIGRATION.[id number] [id number] Information not available 01/09/2023 Do You Wear A Helmet When Biking? Yes MIGRATION.94396 74258 Information not available 01/09/2023 What Is Your Level Of Caffeine Consumption? Moderate MIGRATION.10658 51498 Information not available 01/09/2023 In The 14 Days Before Symptom Onset, Have You Had Close Contact With A Laboratory-confir med COVID-19 While That Case Was Ill? No MIGRATION.04939 20368 Information not available 01/09/2023 In The 14 Days Before Symptom Onset, Have You Had Close Contact With A Person Who Is Under Investigation For COVID-19 While That Person Was Ill? No MIGRATION.85798 67664 Information not available 01/09/2023 What Type Of Diet Are You Following? REGULAR MIGRATION.25021 25486 Information not available 01/09/2023 Which Illicit Or Recreational Drugs Have You Used? None MIGRATION.83072 19868 Information not available 01/09/2023 What Is The Highest Grade Or Level Of School You Have Completed Or The Highest Degree You Have Received? [id number] MIGRATION.36772 86217 Information not available 01/09/2023 Have There Been Any Changes To Your Family Or Social Situation? No MIGRATION.12263 36190 Information not available 01/09/2023 What Is The Fluoride Status Of Your Home? Unknown MIGRATION.89031 12884 Information not available 01/09/2023 Are There Any Guns Present In Your Home? No MIGRATION.78534 85588 Information not available 01/09/2023 Do You Use Insect Repellent Routinely? Yes MIGRATION.68050 76253 Information not available 01/09/2023 Where Do You Live? [place] MIGRATION.52330 08918 Information not available 01/09/2023 Do You Have A Medical Power Of [employer]? No MIGRATION.61399 38395 Information not available 01/09/2023 What Was The Date Of Your Most Recent Tobacco Screening? 12/19/2022 MIGRATION.67956 19424 Information not available 01/09/2023 Have You Ever Been Counseled For Unhealthy Alcohol Use? No MIGRATION.89421 70529 Information not available 01/09/2023 Do You Have Any Pets? No MIGRATION.59294 60180 Information not available 01/09/2023 What Is Your Relationship Status? MIGRATION.54608 73399 Information not available 01/09/2023 Do You Use Your Seat Belt Or Car Seat Routinely? Yes MIGRATION.82906 72362 Information not available 01/09/2023 Do You Have Smoke And Carbon Monoxide Detectors In Your Home? Yes MIGRATION.51881 03724 Information not available 01/09/2023 Are You Passively Exposed To Smoke? No MIGRATION.42128 11945 Information not available 01/09/2023 Are There Any Smokers In Your House? No MIGRATION.65377 63950 Information not available 01/09/2023 What Types Of Sporting Activities Do You Participate In? None MIGRATION.11346 41106 Information not available 01/09/2023 Do You Use Sunscreen Routinely? Yes MIGRATION.16635 04473 Information not available 01/09/2023 Has Tobacco Cessation Counseling Been Provided? No N/a MIGRATION.45314 29891 Information not available 01/09/2023 Have You Recently Traveled Abroad? No MIGRATION.75027 77286 Information not available 01/09/2023 Do You Have Any Dietary Restrictions? No MIGRATION.04458 41256 Information not available 01/09/2023 Sex: Female Functional Status Question Answer Note LastModified by Ule Details LastModified Time Do you use any illicit or recreational drugs? No MIGRATION.874396 5422 Information not available 01/09/2023 Do you or have you ever used any other forms of tobacco or nicotine? No MIGRATION.702553 8505 Information not available 01/09/2023 What is your level of alcohol consumption? 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 Never used electronic cigarettes MIGRATION.907399 9487 Information not available 01/09/2023 What is your exercise level? Moderate MIGRATION.045209 3891 Information not available 01/09/2023 Mental Status Question Answer Note LastModified by Ule Details LastModified Time Do you feel stressed (tense, restless, nervous, or anxious, or unable to sleep at night)? [id number] MIGRATION.[id number] 6 Information not available 01/09/2023 Family History Relationship Description Onset Age of this Age Resolved Age Notes LastModified by Organization Details LastModified Time Mother Myocardial infarction [id number] Not available 01/09/2023 00:41:48 Mother Malignant tumor of breast MIGRATION.[id number] Not available 01/09/2023 00:41:48 Mother Heart disease MIGRATION.[id number] Not available 01/09/2023 00:41:48 Medical History Condition Response NERVE DISEASE N BLINDNESS N RHEUMATIC FEVER N KIDNEY STONES N BLADDER PROBLEMS N MRSA N OTHER # 1 N POLIO N LUNG DISEASE/DISORDER N HISTORY OF DRUG ABUSE N RADIATION / CHEMOTHERAPY N COPD N Other # 2 N BLOOD DISEASES N EAR OR HEARING PROBLEMS N MUMPS N SHINGLES N BOWEL PROBLEMS N DEPRESSION (INCLUDING POST ) N STROKE/TIA N ULCERS N BENIGN PROSTATIC HYPERPLASIA N MEASLES N HYPOTENSION N MYOCARDIAL INFARCTION N OBESITY N GERD/NAUSEA N ANEURYSM N URINARY/BLADDER/KIDNEY PROBLEMS N CORONARY ARTERY DISEASE (CAD) N ADDICTION CONCERNS N ENDOMETRIOSIS N Impotence N USE OF BLOOD THINNERS N SKIN PROBLEMS N GASTROINTESTINAL DISORDER N PERIPHERAL VASCULAR DISEASE N MUSCLE,JOINT OR BONE PROBLEMS N GASTROINTESTINAL BLEEDING N BLOOD CLOTS N ASTHMA N CATARACTS N ERECTILE DYSFUNCTION N VARICOSITIES N GI PROBLEMS N Low Testosterone N INFERTILITY N AIDS/HIV N CHEMOTHERAPY / RADIATION N LIVER DISEASE N MALE HYPOGONADISM N HYPERTENSION N Deficiency N TOURETTE'S N ANXIETY DISORDER N BLOOD TRANSFUSION N ANEMIA/BLOOD DISORDER N CHRONIC EAR INFECTIONS N BRONCHITIS N TUBERCULOSIS N GLAUCOMA N FOOT PROBLEM N DIVERTICULITIS N CHICKENPOX N SLEEP APNEA N INFECTIOUS DISEASE N HEART ARRHYTHMIA N PROSTATE N INSOMNIA N HIGH CHOLESTEROL / HYPERLIPIDEMIA Y HYPERTHYROIDISM N EYE PROBLEMS N EDEMA N CHRONIC PAIN SYNDROME N HYPOTHYROIDISM N CAROTID BLOCKAGE N CONSTIPATION N BACK / NECK PROBLEMS N ATHEROSCLEROSIS N BREAST PROBLEMS N DIALYSIS N ECZEMA N OSTEOPOROSIS N ARTHRITIS N APPENDICITIS N DIABETES, TYPE N BAD TEETH N ENT N HEARTBURN / REFLUX N AUTISM SPECTRUM DISORDER (ASD) N HEPATITIS / LIVER DISEASE N GOUT N SLEEP DISORDER N ALZHEIMER'S DISEASE N Brain Problems N HERPES N DEMENTIA N HEADACHES/MIGRAINES N SEIZURES/EPILEPSY N VASCULAR DISEASE N PACEMAKER N Blood Disorder N DIZZINESS N HEART DISEASE/HEART PROBLEMS N KIDNEY DISEASE N MULTIPLE SCLEROSIS N CARDIAC ARRHYTHMIA N CANCER: SPECIFY N ATRIAL FIBRILLATION N Gall Stones N PULMONARY EMBOLISM N AUTOIMMUNE DISEASE N Gynecological History Statement/Question Response Abnormal Pap N If Post Menopausal, Age at Menopause 53 Date of Last Pap Smear 01/09/2021 Current Control Method Menopause Age at Menarche 14 Most Recent Mammogram 01/09/2021 Breast Problems none Obstetrics History GPAL:G 2 P 2 0 0 2 Type Value Full Term 2 Living 2 Total 2 Immunizations Vaccine Type Date Status Note Provider Nam e and Address Organization Details Recorded Time COVID-19, mRNA, LNP-S, PF, 100 mcg/0.5mL dose or 50 mcg/0.25mL dose 03/03/2021 completed Not Available [facility] 4 16:12:35 COVID-19, mRNA, LNP-S, PF, 100 mcg/0.5mL dose or 50 mcg/0.25mL dose 02/09/2021 completed Not Available [facility] 4 16:12:35 Influenza, split virus, quadrivalent, PF 10/10/2022 completed Not Available [facility] 4 16:12:35 COVID-19, mRNA, LNP-S, PF, 100 mcg/0.5mL dose or 50 mcg/0.25mL dose 10/24/2021 completed Not Available [facility] 4 16:12:35 Tdap 11/11/2009 completed Not Available [facility] 12/05/2023 16:12:35 Influenza, split virus, quadrivalent, PF 09/04/2021 completed Not Available [facility] 4 16:12:35 Past Encounters Encounter ID Performer Location Encounter Start Date Encounter Closed Date Diagnosis/Indication Diagnosis SNOMED-CT Code Diagnosis ICD10 Code Diagnosis Note [id number] [facility] _GARRETT_ IGRATION_ DEFAULT_1 _1 , 01/09/2021 00:00:00 01/09/2021 15:29:01 [id number] Chet elias MD [facility] [place] [address] [place] [address] [place] [address] 05/08/2021 00:00:00 05/08/2021 18:27:25 [id number] MD CESAR SandovalYovanny [facility] [place] [address] [place] [address] [place] [address] 09/04/2021 00:00:00 09/04/2021 16:37:23 [id number] Chet elias MD [facility] [place] [address] [place] [address] [place] [address] 01/15/2022 00:00:00 01/15/2022 14:36:28 [id number] Chet elias MD [facility] Internal [facility] [place] christ[place] [address] [place] [address] [place] [address] 05/16/2022 00:00:00 05/16/2022 14:39:37 [id number] Ramana Galaviz DPM _JIMENEZ_Yudy IGRATION_ DEFAULT_1 _1 , 09/10/2022 00:00:00 10/02/2022 14:15:36 [id number] DELANEY FrederickATHVADIM_Yudy IGRATION_ DEFAULT_1 _1 , 2022 00:00:00 10/16/2022 09:47:19 [id number] Chet elias MD [facility] Internal [facility] [place] christiansen [address] [place] [address] [place] [address] 12/19/2022 00:00:00 12/19/2022 14:30:26 Health Concerns Section Related Observation LastModified by Organization Detai ls LastModified Time None Recorded Concern Status LastModified by Organization Details LastModified Time None Recorded Advance Directives Directive N: Payers Insurance Date Sequence Insurance Name Policy Number Policy Gorman Covered Member ID Gorman Member ID Guarantor Name 06/14/2023 1 [place] [id number] R Tenzin Thorne [id number] Aleisha Thorne OBGyn Episode No OBEpisode recorded.
== END 2025-05-26 14:45 | disposition home or self-care (01) ==
LOC: ANHIMG 14:45
PROVIDERS: PCP Family Medicine; Visit Provider Obstetrics & Gynecology
DX: Z12.31 Encounter for screening mammogram for malignant neoplasm of breast (principal)
CPT/HCPCS: 77063; 77067

== ENCOUNTER 2025-09-03 07:06 | Outpatient (CLI) | payer BC, SELFPAY ==
[2025-09-03 08:54] LABS: Free T4 Free Thyroxine 0.95 ng/dL (0.78-2.19)
[2025-09-03 09:08] LABS: Thyroid Stimulating Hormone Reflex 6.730 uIU/mL (0.465-4.68)
== END 2025-09-03 07:07 | disposition home or self-care (01) ==
PROVIDERS: PCP Family Medicine; Visit Provider Family Medicine
DX: R79.89 Other specified abnormal findings of blood chemistry (principal)
CPT/HCPCS: 36415; 84439; 84443; 86376